=== PATIENT | female | born 1965 | race Caucasian/White ===

== ENCOUNTER 2022-07-22 10:26 | Inpatient (IN) | payer MEDICAID ==
[~2022-07-22] VITALS: Ht 152.4 cm; Wt 107.5 kg
[2022-07-22] MEDS: PIPERACILLIN/TAZOBACTAM 3.375 G in DEXTROSE 5% WATER 50 ML IV SCH ×2
[2022-07-22] MEDS ORDERED: MORPHINE SULFATE 4 MG/ML CPJ (NOT FOR IM USE) IV STA (10:58)
[2022-07-22] MEDS ORDERED: ONDANSETRON HCL 4MG/2ML INJ IV STA (10:58)
[2022-07-22 12:28] LABS: CHLORIDE 98 mEq/L (98-107); HEMATOCRIT. 36.3 % (36.0-48.0); HEMOGLOBIN. 12.4 g/dL (12.0-16.0); MEAN CORPUSCULAR HEMOGLOBIN 29.2 pg (28.0-32.0); MEAN CORPUSCULAR VOLUME 85.2 fL (81.0-99.0); MEAN PLATELET VOLUME 8.4 fl (7.4-10.4); PLATELET 369 x1000/uL (130-400); RED BLOOD CELL COUNT 4.26 mill/uL (4.2-5.4); RED CELL DISTRIBUTION WIDTH 13.3 % (11.6-14.6)
[2022-07-22 12:34] LABS: INR 1.3; PROTHROMBIN TIME 13.5 sec (9.6-11.0)
[2022-07-22] MEDS ORDERED: PIPERACILLIN/TAZOBACTAM 3.375GM/50ML PREMIX IV ONE (12:45)
[2022-07-22] MEDS ORDERED: SODIUM CHLORIDE 0.9% 1000ML BAG (SEPSIS BOLUS) IV ONE (13:00)
[2022-07-22 13:13] LABS: PLATELET ESTIMATE NORMAL
[2022-07-22] MEDS ORDERED: MORPHINE SULFATE 4 MG/ML CPJ (NOT FOR IM USE) IV NR (13:45)
[2022-07-22] MEDS ORDERED: ONDANSETRON HCL 4MG/2ML INJ IV NR (13:45)
[2022-07-22] MEDS: TAZOBACTAM IV SCH ×2 (13:54→17:45)
[2022-07-22] MEDS: WATER IV SCH ×2 (13:54→17:45)
[2022-07-22] MEDS: DEXT 5% IV SCH ×2 (13:54→17:45)
[2022-07-22] MEDS: PIPERACILLIN IV SCH ×2 (13:54→17:45)
[2022-07-22] MEDS ORDERED: IPRATROPIUM/ALBUTEROL 0.5-3(2.5)MG/3ML NEB HHN PRN (17:30)
[2022-07-22] MEDS ORDERED: CLONIDINE 0.1MG TABLET PO PRN (17:30)
[2022-07-22] MEDS ORDERED: ONDANSETRON HCL 4MG/2ML INJ IV PRN (17:30)
[2022-07-22] MEDS ORDERED: DIPHENHYDRAMINE 50MG/ML VIAL IV PRN (17:30)
[2022-07-22] MEDS: DEXT 5%/0.9% NACL 1,000 ML IV SCH ×2 (17:44→22:45)
[2022-07-22] MEDS ORDERED: VANCOMYCIN 1.25GM PMX (XELLIA) 250 ML IV SCH (20:00)
[2022-07-22] MEDS: ACETAMINOPHEN 325MG TABLET PO PRN (21:59)
[2022-07-22 22:00] VITALS: BP 99/57
[2022-07-23] VITALS (8 sets, daily range): BP systolic 83–142; BP diastolic 47–85
[2022-07-23] MEDS ORDERED: SODIUM CHLORIDE 0.9% 1000ML BAG (SEPSIS BOLUS) IV NR (05:00)
[2022-07-23] MEDS: PIPERACILLIN/TAZOBACTAM 3.375 G in DEXTROSE 5% WATER 50 ML IV SCH ×3 (05:19→23:48)
[2022-07-23] MEDS ORDERED: INFLUENZA VACCINE 05/PF 0.5 ML SYRINGE IM ONE (09:00)
[2022-07-23] MEDS: MORPHINE SULFATE 2 MG/ML CPJ (NOT FOR IM USE) IV PRN ×2 (10:13→21:19)
[2022-07-23] MEDS ORDERED: LIDOCAINE HCL 1% 50ML VIAL (10MG/ML) ONE (11:17)
[2022-07-23 11:54] LABS: BG BASE EXCESS -5.4 mmol/L (-2.0-2.0); BG CARBOXYHEMOGLOBIN 0.3 % (0.5-1.5); BG DEOXYHEMOGLOBIN 4.4 % (0.0-5.0); BG HCO3 ACT 18.2 mmol/L (22.0-26.0); BG METHEMOGLOBIN 0.2 % (0.0-1.5); BG OXYGEN SATURATION 95.6 % (92.0-98.5); BG OXYHEMOGLOBIN 95.1 % (94.0-97.0); BG PCO2 29.8 mmHg (35.0-45.0); BG PH 7.403 (7.350-7.450); BG SAMPLE SITE RIGHT RADIAL; BG TOTAL HEMOGLOBIN 12.5 g/dL (12.0-18.0); BG VENT MODE MASK - SIMPLE
[2022-07-23] MEDS ORDERED: VANCOMYCIN 750MG PMX (XELLIA) 150 ML IV SCH (12:00)
[2022-07-23 12:01] LABS: HEMATOCRIT. 39.1 % (36.0-48.0); HEMOGLOBIN. 12.8 g/dL (12.0-16.0); MEAN CORPUSCULAR HEMOGLOBIN 29.3 pg (28.0-32.0); MEAN CORPUSCULAR VOLUME 89.4 fL (81.0-99.0); RED BLOOD CELL COUNT 4.37 mill/uL (4.2-5.4); RED CELL DISTRIBUTION WIDTH 13.6 % (11.6-14.6)
[2022-07-23 12:48] LABS: PLATELET ESTIMATE NORMAL
[2022-07-23 12:51] LABS: PLATELET 224 x1000/uL (130-400)
[2022-07-23 13:10] LABS: CHLORIDE 106 mEq/L (98-107)
[2022-07-23] MEDS: DEXT 5%/0.9% NACL 1,000 ML IV SCH ×2 (13:36→23:49)
[2022-07-23] MEDS ORDERED: CLONIDINE 0.1MG TABLET PO PRN (15:15)
[2022-07-23 16:13] LABS: CLARITY URINE TURBID (CLEAR); COLOR URINE DARK YELLOW (YELLOW); KETONES URINE NEGATIVE (NEGATIVE); LEUKOCYTE ESTERASE URINE TRACE (NEGATIVE); NITRITE URINE NEGATIVE (NEGATIVE); OCCULT BLOOD URINE 3+ (NEGATIVE); PH URINE 5.5 (4.5-8.0); PROTEIN URINE 2+ (NEGATIVE); SPECIFIC GRAVITY URINE 1.024 (1.005-1.030)
[2022-07-23 18:43] LABS: CREATINE KINASE 1493 IU/L (26-192)
[2022-07-23] MEDS: AMLODIPINE 2.5MG TABLET PO SCH (21:00)
[2022-07-24] VITALS: BP 88/50
[2022-07-24 04:00] VITALS: BP 99/57
[2022-07-24] MEDS: PIPERACILLIN/TAZOBACTAM 3.375 G in DEXTROSE 5% WATER 50 ML IV SCH ×2 (05:27→15:10)
[2022-07-24] MEDS: DEXT 5%/0.9% NACL 1,000 ML IV SCH ×2 (06:57→21:37)
[2022-07-24 07:52] VITALS: BP 96/57
[2022-07-24] MEDS: AMLODIPINE 2.5MG TABLET PO SCH ×2 (08:36→21:00)
[2022-07-24 09:18] LABS: CHLORIDE 108 mEq/L (98-107)
[2022-07-24] MEDS ORDERED: VANCOMYCIN 1G PREMIX 200 ML IV SCH (11:30)
[2022-07-24 12:26] VITALS: BP 111/67
[2022-07-24] MEDS ORDERED: POTASSIUM CHLORIDE 20MEQ TABLET SR PO NR (12:30)
[2022-07-24] MEDS ORDERED: NALOXONE HCL 0.4MG/ML VIAL IV PRN (14:30)
[2022-07-24] MEDS: METRONIDAZOLE 500 MG PREMIX 100 ML IV SCH ×2 (15:51→22:10)
[2022-07-24] MEDS: MORPHINE SULFATE 2 MG/ML CPJ (NOT FOR IM USE) IV PRN (16:19)
[2022-07-24 16:25] VITALS: BP 120/69
[2022-07-24 17:15] LABS: PHOSPHORUS 2.1 mg/dL (2.5-4.9)
[2022-07-24] MEDS: CEFTRIAXONE 2 G in DEXTROSE 5% WATER 50 ML IV SCH (17:43)
[2022-07-24 20:03] VITALS: BP 98/50
[2022-07-24] MEDS: ACETAMINOPHEN 325MG TABLET PO PRN (21:37)
[2022-07-25 00:03] VITALS: BP 102/55
[2022-07-25 04:03] VITALS: BP 118/75
[2022-07-25] MEDS: DEXT 5%/0.9% NACL 1,000 ML IV SCH ×2 (04:33→17:41)
[2022-07-25] MEDS: METRONIDAZOLE 500 MG PREMIX 100 ML IV SCH ×3 (05:02→21:17)
[2022-07-25 08:00] VITALS: BP 125/74
[2022-07-25] MEDS: AMLODIPINE 2.5MG TABLET PO SCH ×2 (08:57→20:35)
[2022-07-25] MEDS: BENZONATATE 100MG CAPSULE PO PRN ×2 (08:57→21:15)
[2022-07-25 11:37] LABS: MEAN CORPUSCULAR HEMOGLOBIN 28.9 pg (28.0-32.0); MEAN CORPUSCULAR VOLUME 90.3 fL (81.0-99.0); MEAN PLATELET VOLUME 8.4 fl (7.4-10.4); PLATELET 189 x1000/uL (130-400); RED BLOOD CELL COUNT 3.16 mill/uL (4.2-5.4); RED CELL DISTRIBUTION WIDTH 14.2 % (11.6-14.6)
[2022-07-25 12:00] VITALS: BP 129/71
[2022-07-25 12:59] LABS: HEMATOCRIT. 28.5 % (36.0-48.0); HEMOGLOBIN. 9.1 g/dL (12.0-16.0)
[2022-07-25] MEDS: MORPHINE SULFATE 2 MG/ML CPJ (NOT FOR IM USE) IV PRN (13:12)
[2022-07-25] MEDS: CEFTRIAXONE 2 G in DEXTROSE 5% WATER 50 ML IV SCH (15:43)
[2022-07-25 15:49] LABS: PLATELET ESTIMATE NORMAL
[2022-07-25 16:00] VITALS: BP 108/64
[2022-07-25 17:38] LABS: CHLORIDE 109 mEq/L (98-107)
[2022-07-25 20:01] VITALS: BP 124/68
[2022-07-26 00:02] VITALS: BP 120/66
[2022-07-26] MEDS: KCL 20MEQ/100ML PREMIX 100 ML IV SCH ×2 (00:11→03:03)
[2022-07-26] MEDS: DEXT 5%/0.9% NACL 1,000 ML IV SCH ×3 (03:03→21:37)
[2022-07-26 04:02] VITALS: BP 130/74
[2022-07-26 05:09] LABS: CHLORIDE 109 mEq/L (98-107)
[2022-07-26 05:51] LABS: HEMATOCRIT. 31.4 % (36.0-48.0); HEMOGLOBIN. 10.2 g/dL (12.0-16.0); MEAN CORPUSCULAR HEMOGLOBIN 28.4 pg (28.0-32.0); MEAN CORPUSCULAR VOLUME 87.1 fL (81.0-99.0); MEAN PLATELET VOLUME 8.2 fl (7.4-10.4); PLATELET 250 x1000/uL (130-400); RED BLOOD CELL COUNT 3.61 mill/uL (4.2-5.4); RED CELL DISTRIBUTION WIDTH 13.8 % (11.6-14.6)
[2022-07-26] MEDS: METRONIDAZOLE 500 MG PREMIX 100 ML IV SCH ×3 (06:17→22:22)
[2022-07-26 07:22] LABS: PLATELET ESTIMATE NORMAL
[2022-07-26 08:00] VITALS: BP 127/91
[2022-07-26] MEDS ORDERED: POTASSIUM CHLORIDE 20MEQ TABLET SR PO SCH (09:00)
[2022-07-26] MEDS: AMLODIPINE 2.5MG TABLET PO SCH ×2 (09:54→21:40)
[2022-07-26 12:00] VITALS: BP 129/75
[2022-07-26 16:00] VITALS: BP 140/87
[2022-07-26] MEDS ORDERED: POTASSIUM CHLORIDE 20MEQ/PACKET PO SCH (17:00)
[2022-07-26] MEDS: CEFTRIAXONE 2 G in DEXTROSE 5% WATER 50 ML IV SCH (17:16)
[2022-07-26] MEDS: BENZONATATE 100MG CAPSULE PO SCH (17:55)
[2022-07-26 20:11] VITALS: BP 160/78
[2022-07-26] MEDS: GUAIFENESIN 600MG ER TABLET PO SCH (21:40)
[2022-07-27] VITALS: BP 125/74
[2022-07-27] MEDS: BENZONATATE 100MG CAPSULE PO SCH ×4 (00:18→23:29)
[2022-07-27 04:00] VITALS: BP 117/60
[2022-07-27] MEDS: METRONIDAZOLE 500 MG PREMIX 100 ML IV SCH ×3 (06:45→21:40)
[2022-07-27] MEDS: DEXT 5%/0.9% NACL 1,000 ML IV SCH ×2 (07:23→23:29)
[2022-07-27 07:46] LABS: HEMOGLOBIN. 10.9 g/dL (12.0-16.0); MEAN CORPUSCULAR HEMOGLOBIN 28.7 pg (28.0-32.0); MEAN PLATELET VOLUME 8.3 fl (7.4-10.4); PLATELET 297 x1000/uL (130-400); RED BLOOD CELL COUNT 3.79 mill/uL (4.2-5.4); RED CELL DISTRIBUTION WIDTH 13.9 % (11.6-14.6)
[2022-07-27 08:55] LABS: CHLORIDE 107 mEq/L (98-107)
[2022-07-27 09:00] VITALS: BP 128/83
[2022-07-27 09:08] LABS: PHOSPHORUS 2.9 mg/dL (2.5-4.9)
[2022-07-27] MEDS: GUAIFENESIN 600MG ER TABLET PO SCH ×2 (09:52→21:39)
[2022-07-27] MEDS: AMLODIPINE 2.5MG TABLET PO SCH ×2 (09:52→21:40)
[2022-07-27 10:53] LABS: PLATELET ESTIMATE NORMAL
[2022-07-27] MEDS ORDERED: POTASSIUM CHLORIDE 20MEQ/PACKET PO SCH (11:00)
[2022-07-27 12:00] VITALS: BP 115/75
[2022-07-27] MEDS ORDERED: MAGNESIUM 1 G PREMIX 100 ML IV SCH (12:00)
[2022-07-27 16:00] VITALS: BP 120/68
[2022-07-27] MEDS: CEFTRIAXONE 2 G in DEXTROSE 5% WATER 50 ML IV SCH (16:33)
[2022-07-27 20:00] VITALS: BP 140/71
[2022-07-28] VITALS (15 sets, daily range): BP systolic 123–167; BP diastolic 60–107
[2022-07-28] MEDS: METRONIDAZOLE 500 MG PREMIX 100 ML IV SCH ×3 (05:20→21:33)
[2022-07-28] MEDS: DEXT 5%/0.9% NACL 1,000 ML IV SCH ×3 (05:21→23:25)
[2022-07-28 07:09] LABS: HEMATOCRIT. 32.1 % (36.0-48.0); HEMOGLOBIN. 10.7 g/dL (12.0-16.0); MEAN CORPUSCULAR HEMOGLOBIN 28.9 pg (28.0-32.0); MEAN CORPUSCULAR VOLUME 86.7 fL (81.0-99.0); MEAN PLATELET VOLUME 7.8 fl (7.4-10.4); PLATELET 330 x1000/uL (130-400); RED BLOOD CELL COUNT 3.71 mill/uL (4.2-5.4); RED CELL DISTRIBUTION WIDTH 13.5 % (11.6-14.6)
[2022-07-28 09:29] LABS: CHLORIDE 105 mEq/L (98-107)
[2022-07-28] MEDS: GUAIFENESIN 600MG ER TABLET PO SCH ×2 (09:54→21:35)
[2022-07-28] MEDS: AMLODIPINE 2.5MG TABLET PO SCH ×2 (09:55→21:33)
[2022-07-28] MEDS: BENZONATATE 100MG CAPSULE PO SCH ×3 (09:55→23:30)
[2022-07-28 10:05] LABS: PLATELET ESTIMATE NORMAL
[2022-07-28] MEDS ORDERED: FENTANYL CITRATE/PF 50MCG/ML 2ML VIAL ONE (14:32)
[2022-07-28] MEDS ORDERED: LIDOCAINE HCL 1% 30ML VIAL (10MG/ML) ONE (14:43)
[2022-07-28] MEDS ORDERED: SODIUM BICARBONATE 4% (2.4MEQ) 5ML VIAL IV ONE (14:44)
[2022-07-28] MEDS ORDERED: FENTANYL CITRATE/PF 50MCG/ML 2ML VIAL IV NR (15:15)
[2022-07-28] MEDS: CEFTRIAXONE 2 G in DEXTROSE 5% WATER 50 ML IV SCH (17:11)
[2022-07-29 04:00] VITALS: BP 132/72
[2022-07-29] MEDS: METRONIDAZOLE 500 MG PREMIX 100 ML IV SCH ×3 (05:32→21:26)
[2022-07-29 07:05] LABS: BASOPHILS % 0.4 % (0.0-2.0); EOSINOPHILS % 0.6 % (0.0-5.0); HEMATOCRIT. 32.8 % (36.0-48.0); HEMOGLOBIN. 10.9 g/dL (12.0-16.0); LYMPHOCYTES % 7.8 % (20.0-50.0); MEAN CORPUSCULAR HEMOGLOBIN 28.6 pg (28.0-32.0); MEAN CORPUSCULAR VOLUME 86.1 fL (81.0-99.0); MEAN PLATELET VOLUME 7.9 fl (7.4-10.4); NEUTROPHILS % 86.2 % (40.0-76.0); PLATELET 360 x1000/uL (130-400); RED BLOOD CELL COUNT 3.81 mill/uL (4.2-5.4); RED CELL DISTRIBUTION WIDTH 13.9 % (11.6-14.6)
[2022-07-29 07:10] LABS: CHLORIDE 101 mEq/L (98-107)
[2022-07-29 07:28] LABS: PHOSPHORUS 3.4 mg/dL (2.5-4.9)
[2022-07-29 08:00] VITALS: BP 126/77
[2022-07-29] MEDS: GUAIFENESIN 600MG ER TABLET PO SCH ×2 (08:31→21:25)
[2022-07-29] MEDS: AMLODIPINE 2.5MG TABLET PO SCH ×2 (08:31→21:26)
[2022-07-29] MEDS: BENZONATATE 100MG CAPSULE PO SCH ×2 (08:32→15:35)
[2022-07-29] MEDS: DEXT 5%/0.9% NACL 1,000 ML IV SCH (08:32)
[2022-07-29] MEDS ORDERED: POTASSIUM CHLORIDE 20MEQ TABLET SR PO NR (09:30)
[2022-07-29 12:00] VITALS: BP 133/78
[2022-07-29] MEDS: CEFTRIAXONE 2 G in DEXTROSE 5% WATER 50 ML IV SCH (15:35)
[2022-07-29 16:00] VITALS: BP 114/72
[2022-07-29 20:00] VITALS: BP 136/76
[2022-07-30] VITALS: BP 120/84
[2022-07-30] MEDS: BENZONATATE 100MG CAPSULE PO SCH ×4 (00:12→23:05)
[2022-07-30 04:00] VITALS: BP 130/78
[2022-07-30 05:23] LABS: HEMATOCRIT. 32.1 % (36.0-48.0); HEMOGLOBIN. 10.7 g/dL (12.0-16.0); MEAN CORPUSCULAR HEMOGLOBIN 28.6 pg (28.0-32.0); MEAN CORPUSCULAR VOLUME 85.4 fL (81.0-99.0); MEAN PLATELET VOLUME 7.4 fl (7.4-10.4); PLATELET 466 x1000/uL (130-400); RED BLOOD CELL COUNT 3.76 mill/uL (4.2-5.4); RED CELL DISTRIBUTION WIDTH 13.7 % (11.6-14.6)
[2022-07-30] MEDS: METRONIDAZOLE 500 MG PREMIX 100 ML IV SCH ×3 (05:23→20:50)
[2022-07-30 05:30] LABS: CHLORIDE 102 mEq/L (98-107)
[2022-07-30 05:35] LABS: PHOSPHORUS 3.1 mg/dL (2.5-4.9)
[2022-07-30 08:00] VITALS: BP 121/75
[2022-07-30] MEDS ORDERED: POTASSIUM CHLORIDE 20MEQ TABLET SR PO NR (09:15)
[2022-07-30] MEDS: GUAIFENESIN 600MG ER TABLET PO SCH ×2 (09:17→20:52)
[2022-07-30] MEDS: AMLODIPINE 2.5MG TABLET PO SCH ×2 (09:17→20:52)
[2022-07-30 10:56] LABS: PLATELET ESTIMATE INCREASED
[2022-07-30 12:00] VITALS: BP 113/69
[2022-07-30] MEDS: DICLOFENAC SODIUM 1% GEL 50GM TOP SCH ×4 (12:29→20:51)
[2022-07-30 16:00] VITALS: BP 115/78
[2022-07-30] MEDS: CEFTRIAXONE 2 G in DEXTROSE 5% WATER 50 ML IV SCH (17:47)
[2022-07-31 01:31] LABS: BASOPHILS % 0.2 % (0.0-2.0); CHLORIDE 102 mEq/L (98-107); EOSINOPHILS % 0.4 % (0.0-5.0); HEMOGLOBIN. 11.1 g/dL (12.0-16.0); LYMPHOCYTES % 7.5 % (20.0-50.0); MEAN CORPUSCULAR HEMOGLOBIN 28.7 pg (28.0-32.0); MEAN CORPUSCULAR VOLUME 85.5 fL (81.0-99.0); MEAN PLATELET VOLUME 7.3 fl (7.4-10.4); MONOCYTES % 5.3 % (2.0-8.0); NEUTROPHILS % 86.6 % (40.0-76.0); PLATELET 528 x1000/uL (130-400); RED BLOOD CELL COUNT 3.86 mill/uL (4.2-5.4); RED CELL DISTRIBUTION WIDTH 13.9 % (11.6-14.6)
[2022-07-31 01:36] LABS: PHOSPHORUS 2.8 mg/dL (2.5-4.9)
[2022-07-31 01:52] LABS: CLARITY URINE CLEAR (CLEAR); COLOR URINE YELLOW (YELLOW); KETONES URINE NEGATIVE (NEGATIVE); LEUKOCYTE ESTERASE URINE 1+ (NEGATIVE); NITRITE URINE NEGATIVE (NEGATIVE); OCCULT BLOOD URINE 2+ (NEGATIVE); PH URINE 6.5 (4.5-8.0); PROTEIN URINE TRACE (NEGATIVE); SPECIFIC GRAVITY URINE 1.017 (1.005-1.030); UROBILINOGEN URINE 0.2 E.U./dL (0.2-1.0)
[2022-07-31] MEDS: METRONIDAZOLE 500 MG PREMIX 100 ML IV SCH ×2 (06:03→12:58)
[2022-07-31 08:00] VITALS: BP 117/72
[2022-07-31] MEDS: AMLODIPINE 2.5MG TABLET PO SCH ×2 (09:00→20:22)
[2022-07-31] MEDS: GUAIFENESIN 600MG ER TABLET PO SCH ×2 (09:33→20:21)
[2022-07-31] MEDS: DICLOFENAC SODIUM 1% GEL 50GM TOP SCH ×4 (09:33→20:22)
[2022-07-31] MEDS: BENZONATATE 100MG CAPSULE PO SCH ×2 (09:33→17:15)
[2022-07-31 12:00] VITALS: BP 123/75
[2022-07-31 16:00] VITALS: BP 145/76
[2022-07-31] MEDS ORDERED: NALOXONE HCL 0.4MG/ML VIAL IV PRN (16:30)
[2022-07-31] MEDS: HYDROCODONE/ACETAMINOPHEN 5/325MG TABLET PO PRN ×2 (17:15→22:51)
[2022-07-31] MEDS: CEFTRIAXONE 2 G in DEXTROSE 5% WATER 50 ML IV SCH (17:16)
[2022-07-31 20:00] VITALS: BP 115/61
[2022-08-01] VITALS: BP 114/65
[2022-08-01] MEDS: BENZONATATE 100MG CAPSULE PO SCH ×3 (02:30→14:39)
[2022-08-01] MEDS: METRONIDAZOLE 500 MG PREMIX 100 ML IV SCH ×3 (03:34→14:37)
[2022-08-01 04:00] VITALS: BP 109/66
[2022-08-01 08:00] VITALS: BP 133/81
[2022-08-01 08:15] LABS: BASOPHILS % 0.3 % (0.0-2.0); EOSINOPHILS % 0.7 % (0.0-5.0); HEMATOCRIT. 33.5 % (36.0-48.0); LYMPHOCYTES % 11.4 % (20.0-50.0); MEAN CORPUSCULAR HEMOGLOBIN 28.5 pg (28.0-32.0); MEAN CORPUSCULAR VOLUME 86.9 fL (81.0-99.0); MEAN PLATELET VOLUME 7.2 fl (7.4-10.4); MONOCYTES % 5.7 % (2.0-8.0); NEUTROPHILS % 81.9 % (40.0-76.0); PLATELET 575 x1000/uL (130-400); RED BLOOD CELL COUNT 3.86 mill/uL (4.2-5.4); RED CELL DISTRIBUTION WIDTH 14.2 % (11.6-14.6)
[2022-08-01] MEDS: GUAIFENESIN 600MG ER TABLET PO SCH ×2 (09:07→20:29)
[2022-08-01] MEDS: AMLODIPINE 2.5MG TABLET PO SCH ×2 (09:08→20:29)
[2022-08-01] MEDS: HYDROCODONE/ACETAMINOPHEN 5/325MG TABLET PO PRN ×3 (09:08→18:23)
[2022-08-01] MEDS: DICLOFENAC SODIUM 1% GEL 50GM TOP SCH ×4 (09:08→20:29)
[2022-08-01 09:33] LABS: CHLORIDE 102 mEq/L (98-107)
[2022-08-01 12:00] VITALS: BP 118/68
[2022-08-01 16:00] VITALS: BP 109/67
[2022-08-01] MEDS: CEFTRIAXONE 2 G in DEXTROSE 5% WATER 50 ML IV SCH (18:23)
[2022-08-01 20:00] VITALS: BP 123/78
[2022-08-02] VITALS: BP 131/62
[2022-08-02] MEDS: BENZONATATE 100MG CAPSULE PO SCH ×2 (01:10→09:33)
[2022-08-02] MEDS: HYDROCODONE/ACETAMINOPHEN 5/325MG TABLET PO PRN ×3 (01:11→13:36)
[2022-08-02] MEDS: METRONIDAZOLE 500 MG PREMIX 100 ML IV SCH ×3 (01:12→13:36)
[2022-08-02 04:00] VITALS: BP 122/68
[2022-08-02 08:00] VITALS: BP 131/67
[2022-08-02 08:29] LABS: HEMATOCRIT. 32.4 % (36.0-48.0); HEMOGLOBIN. 10.9 g/dL (12.0-16.0); MEAN CORPUSCULAR HEMOGLOBIN 28.9 pg (28.0-32.0); MEAN CORPUSCULAR VOLUME 85.9 fL (81.0-99.0); MEAN PLATELET VOLUME 6.9 fl (7.4-10.4); PLATELET 629 x1000/uL (130-400); RED BLOOD CELL COUNT 3.77 mill/uL (4.2-5.4); RED CELL DISTRIBUTION WIDTH 13.7 % (11.6-14.6)
[2022-08-02 08:51] LABS: CHLORIDE 100 mEq/L (98-107)
[2022-08-02] MEDS: GUAIFENESIN 600MG ER TABLET PO SCH (09:33)
[2022-08-02] MEDS: DICLOFENAC SODIUM 1% GEL 50GM TOP SCH ×2 (09:33→13:37)
[2022-08-02] MEDS: AMLODIPINE 2.5MG TABLET PO SCH (09:34)
[2022-08-02 10:58] LABS: PLATELET ESTIMATE MARKEDLY INCREASED
[2022-08-02 12:00] VITALS: BP 109/54
[2022-08-02] MEDS ORDERED: TOPUD PO (14:13)
[2022-08-02] MEDS ORDERED: DICL100G31 TP (14:13)
[2022-08-02] MEDS ORDERED: LEVO750T68 MT (14:13)
[2022-08-02] MEDS ORDERED: HYDR-4001 MT (14:13)
[2022-08-02] MEDS ORDERED: AMLO5TAB88 MT (14:13)
[2022-08-02 15:32] VITALS: BP 109/54
== END 2022-08-02 16:30 | disposition home health service (06) | DRG 720 ==
LOC: ER 10:26 → 6WST 16:36 → ENRESERV 20:07
PROVIDERS: ADMIT Internal Medicine; ATTEND Internal Medicine
PROC: 0F9430Z Drainage of Gallbladder with Drainage Device, Percutaneous Approach (ICD-10-PCS; principal; 2022-07-23)
PROC: 0F9030Z Drainage of Liver with Drainage Device, Percutaneous Approach (ICD-10-PCS; 2022-07-28)
DX: A41.9 Sepsis, unspecified organism (principal); K75.0 Abscess of liver; N17.9 Acute kidney failure, unspecified; K82.A1 Gangrene of gallbladder in cholecystitis; K80.10 Calculus of gallbladder with chronic cholecystitis without obstruction; M62.82 Rhabdomyolysis; B96.1 Klebsiella pneumoniae [K. pneumoniae] as the cause of diseases classified elsewhere; N39.0 Urinary tract infection, site not specified; E66.01 Morbid (severe) obesity due to excess calories; E83.42 Hypomagnesemia; E87.6 Hypokalemia; I10 Essential (primary) hypertension; K57.90 Diverticulosis of intestine, part unspecified, without perforation or abscess without bleeding; R74.01 Elevation of levels of liver transaminase levels; Z68.42 Body mass index [BMI] 45.0-49.9, adult; Z20.822 Contact with and (suspected) exposure to COVID-19
CPT/HCPCS: 36415; 36600; 47490; 71045; 71046; 73030; 73620; 74176; 74178; 76705; 77012; 80048; 80053; 80202; 81003; 82375; 82550; 82805; 82962; 83036; 83605; 83735; 84100; 84145; 84484; 85025; 87075; 87077; 87186; 87426; 93005; 93306; 93970; 94640; 97116; 97162; 97166; 99152; 99153; 99285; A6261; C1729; C1769; C1893; J0696; J1200; J2270; J2405; J2543; J3010; J3370; J3475; J3480; J3490; J7030; J7060; L8514; G0500

== ENCOUNTER 2022-08-11 13:00 | Inpatient (IN) | payer MEDICAID ==
[~2022-08-11] VITALS: Ht 160 cm; Wt 99.8 kg
[~2022-08-11 13:00] MED LIST: AMLO5TAB88 MT; DICL100G31 TP; HYDR-4001 MT; LEVO750T68 MT; TOPUD PO
[2022-08-11 22:49] LABS: CHLORIDE 107 mEq/L (98-107)
[2022-08-11 22:53] LABS: PARTIAL THROMBOPLASTIN TIME 28.4 sec (23.4-31.0); PROTHROMBIN TIME 10.9 sec (9.6-11.0)
[2022-08-11 22:55] LABS: BASOPHILS % 0.9 % (0.0-2.0); EOSINOPHILS % 1.6 % (0.0-5.0); HEMATOCRIT. 38.4 % (36.0-48.0); HEMOGLOBIN. 12.8 g/dL (12.0-16.0); LYMPHOCYTES % 19.2 % (20.0-50.0); MEAN CORPUSCULAR HEMOGLOBIN 28.8 pg (28.0-32.0); MEAN CORPUSCULAR VOLUME 86.7 fL (81.0-99.0); MEAN PLATELET VOLUME 6.5 fl (7.4-10.4); NEUTROPHILS % 69.3 % (40.0-76.0); PLATELET 451 x1000/uL (130-400); RED BLOOD CELL COUNT 4.43 mill/uL (4.2-5.4); RED CELL DISTRIBUTION WIDTH 14.9 % (11.6-14.6)
[2022-08-12 00:15] VITALS: BP 111/68
[2022-08-12] MEDS ORDERED: HYDROCODONE/ACETAMINOPHEN 5/325MG TABLET PO PRN (02:15)
[2022-08-12] MEDS ORDERED: NALOXONE HCL 0.4MG/ML VIAL IV PRN (02:30)
[2022-08-12 04:00] VITALS: BP 115/66
[2022-08-12 08:03] VITALS: BP 131/88
[2022-08-12 09:01] LABS: EOSINOPHILS % 1.5 % (0.0-5.0); HEMATOCRIT. 35.8 % (36.0-48.0); HEMOGLOBIN. 12.2 g/dL (12.0-16.0); LYMPHOCYTES % 25.6 % (20.0-50.0); MEAN CORPUSCULAR HEMOGLOBIN 29.2 pg (28.0-32.0); MEAN CORPUSCULAR VOLUME 85.5 fL (81.0-99.0); MEAN PLATELET VOLUME 6.7 fl (7.4-10.4); MONOCYTES % 8.7 % (2.0-8.0); NEUTROPHILS % 63.2 % (40.0-76.0); PLATELET 426 x1000/uL (130-400); RED BLOOD CELL COUNT 4.18 mill/uL (4.2-5.4); RED CELL DISTRIBUTION WIDTH 14.3 % (11.6-14.6)
[2022-08-12 10:26] LABS: CHLORIDE 106 mEq/L (98-107)
[2022-08-12] MEDS: AMLODIPINE 5MG TABLET PO SCH (10:41)
[2022-08-12] MEDS: LEVOFLOXACIN 250MG TABLET PO SCH (10:41)
[2022-08-12 11:58] VITALS: BP 128/74
[2022-08-12 16:00] VITALS: BP 109/91
[2022-08-12 20:00] VITALS: BP 129/77
[2022-08-12 20:24] LABS: CLARITY URINE CLOUDY (CLEAR); COLOR URINE YELLOW (YELLOW); KETONES URINE NEGATIVE (NEGATIVE); LEUKOCYTE ESTERASE URINE 2+ (NEGATIVE); NITRITE URINE NEGATIVE (NEGATIVE); OCCULT BLOOD URINE 3+ (NEGATIVE); PROTEIN URINE 1+ (NEGATIVE)
[2022-08-13] VITALS: BP 118/70
[2022-08-13] MEDS: DIPHENHYDRAMINE 50MG CAPSULE PO PRN ×2 (00:48→20:09)
[2022-08-13 04:00] VITALS: BP 122/70
[2022-08-13 08:02] VITALS: BP 130/83
[2022-08-13] MEDS: AMLODIPINE 5MG TABLET PO SCH (09:10)
[2022-08-13] MEDS: LEVOFLOXACIN 250MG TABLET PO SCH (11:09)
[2022-08-13 12:08] VITALS: BP 112/67
[2022-08-13 15:48] VITALS: BP 108/54
[2022-08-13 20:00] VITALS: BP 132/87
[2022-08-14] VITALS: BP 111/62
[2022-08-14 04:00] VITALS: BP 120/68
[2022-08-14 08:00] VITALS: BP 123/83
[2022-08-14] MEDS: AMLODIPINE 5MG TABLET PO SCH (10:00)
[2022-08-14] MEDS: LEVOFLOXACIN 250MG TABLET PO SCH (10:00)
[2022-08-14] MEDS ORDERED: IOHEXOL-300 50 ML BOTTLE IV ONE (11:22)
[2022-08-14 12:00] VITALS: BP 122/81
[2022-08-14 14:18] VITALS: BP 122/81
[2022-08-14 16:00] VITALS: BP 122/82
== END 2022-08-14 17:29 | disposition home or self-care (01) ==
LOC: ER 13:00 → MICUSO 20:16 → EDBEDREQTM 20:20 → EDBEDREQ 20:20 → 6WST 08-12 00:15
PROVIDERS: ADMIT Internal Medicine; ATTEND Internal Medicine
PROC: 0FP430Z Removal of Drainage Device from Gallbladder, Percutaneous Approach (ICD-10-PCS; principal; 2022-08-14)
PROC: 0FP030Z Removal of Drainage Device from Liver, Percutaneous Approach (ICD-10-PCS; 2022-08-14)
DX: K81.9 Cholecystitis, unspecified (principal); E66.9 Obesity, unspecified; I10 Essential (primary) hypertension; Z20.822 Contact with and (suspected) exposure to COVID-19; Z90.49 Acquired absence of other specified parts of digestive tract; Z68.39 Body mass index [BMI] 39.0-39.9, adult; Z79.899 Other long term (current) drug therapy
CPT/HCPCS: 36415; 74176; 80048; 80053; 80076; 81003; 85025; 87426; 99285; Q0163; Q9967